=== PATIENT | female | born 1975 | race Caucasian/White ===

== ENCOUNTER 2021-03-20 11:04 | Emergency (ER) | payer OTHER ==
[~2021-03-20] VITALS: Ht 162.6 cm; Wt 90.3 kg
[2021-03-20] MEDS ORDERED: PENVK500 PO (13:43)
[2021-03-20] MEDS ORDERED: CLOBET30L TOP (13:43)
== END 2021-03-20 14:17 | disposition home or self-care (01) ==
LOC: ER 11:04
DX: J02.0 Streptococcal pharyngitis (principal)
CPT/HCPCS: 87081; 87430; 99284; A9270